=== PATIENT | male | born 1990 | race African-American/Black ===

== ENCOUNTER 2022-10-04 15:24 | Emergency (ER) | payer OTHER ==
[~2022-10-04] VITALS: Ht 195.6 cm; Wt 73.9 kg
[2022-10-04] MEDS: IV NS 0.9% 1,000 ML BAG IV ONE ×2 (16:00→18:00)
[2022-10-04] MEDS: PANTOPRAZOLE 40 MG VIAL IV ONE ×2 (16:05→18:00)
--- NOTE | 2022-10-04 16:15 | NUR ---
[id number] [facility] c/o abdominal pain w/ nausea and vomiting x today
[2022-10-04] MEDS ORDERED: ONDANSETRON HCL/PF 4 MG/2 ML VIAL IVP ONE (17:00)
[2022-10-04] MEDS ORDERED: KETOROLAC TROMETHAMINE INJ 30 MG/ML VIAL IV ONE (17:00)
[2022-10-04] MEDS ORDERED: KETOROLAC TROMETHAMINE INJ 30 MG/ML VIAL ONE (17:46)
[2022-10-04] MEDS ORDERED: ONDANSETRON HCL/PF 4 MG/2 ML VIAL ONE (17:46)
[2022-10-04] MEDS ORDERED: PANTOPRAZOLE 40 MG VIAL ONE (17:46)
--- NOTE | 2022-10-04 18:00 | NUR ---
TAKEN TO CT
--- NOTE | 2022-10-04 18:21 | NUR ---
STARTED IV LINE AT LEFT EJ 20 G
[2022-10-04 18:25] LABS: BASOPHILS % (AUTO) 0.4 % (0.0-2.0); EOSINOPHILS % (AUTO) 0.5 % (0.0-6.0); HEMATOCRIT 45 % (39-51); HEMOGLOBIN 14.8 g/dL (13.5-17.5); LYMPHOCYTES # (AUTO) 2.1 K/uL (0.8-4.8); LYMPHOCYTES % (AUTO) 24.4 % (20.0-44.0); MEAN CORPUSCULAR HGB CONC 33 g/dl (31.0-36.0); MEAN CORPUSCULAR VOLUME 83 fL (80-96); MONOCYTES # (AUTO) 0.6 K/uL (0.1-1.30); MONOCYTES % (AUTO) 7.4 % (2.0-12.0); NEUTROPHILS # (AUTO) 5.8 K/uL (1.8-8.9); NEUTROPHILS % (AUTO) 67.3 % (43.0-81.0); PLATELET COUNT (AUTO) 354 K/uL (150-450); WHITE BLOOD COUNT (AUTO) 8.6 K/uL (4.3-11.0)
[2022-10-04 18:43] LABS: CALCIUM, SERUM 9.4 mg/dL (8.5-10.1); POTASSIUM 2.9 mmol/L (3.5-5.1)
[2022-10-04 18:51] LABS: ALBUMIN 4.1 g/dL (3.4-5.0); BILIRUBIN,DIRECT 0.2 mg/dL (0.0-0.2); BILIRUBIN,TOTAL 0.7 mg/dL (0.2-1.0); TOTAL PROTEIN, SERUM 8.1 g/dL (6.4-8.2)
[2022-10-04] MEDS ORDERED: POTASSIUM CHLORIDE 20 MEQ TAB.PRT.SR PO ONE ×2 (19:00→19:03)
[2022-10-04] MEDS ORDERED: ONDA4TAB5 PO (19:21)
[2022-10-04] MEDS ORDERED: POTA-58 PO (19:21)
--- NOTE | 2022-10-04 19:37 | NUR ---
SPOKE TO BOLIVAR FROM "[facility]" [phone]. WAITING FOR A CALLBACK FOR STAFF TO MANAGER FAST FOOD THE PATIENT.
--- NOTE | 2022-10-04 20:01 | NUR ---
PT ON THE PHONE WITH "[facility]". FACILITY STATED THEY WILL CALL AN UBER FOR THE PATIENT.
[2022-10-04 20:03] VITALS: BP 120/92
== END 2022-10-04 20:23 | disposition home or self-care (01) ==
LOC: ER 15:27
DX: E87.6 Hypokalemia (principal); R11.2 Nausea with vomiting, unspecified; I10 Essential (primary) hypertension
CPT/HCPCS: 99285; 74176; 96374; 71045; 96375; 96361; 93005; 85025; 80048; 83690; 80076; 36415; J1885; J2405; J7030; C9113